=== PATIENT | male | born 1935 | race Caucasian/White ===

== ENCOUNTER → 2016-11-27 | Day surgery (SDC) | payer MEDICARE, BC ==
[~2016-11-27] VITALS: Ht 170.2 cm; Wt 77.7 kg
[~2016-11-27] MED LIST: ASPIR 8181 MG PO; CALCIUM CARBON600 MG PO; DAILY MULTIPLE1 EAC1 PO; FERROUS SULFAT324 MG PO; LEVOTHROID (SY50 MCG PO; LIPITOR20 M1 PO; METAMUCIL CAPSU1 CAP PO; NORCO 5-325 MG1 TAB PO; NORVASC10 MG PO; PRILOSEC20 M1 PO; PRINIVIL (ZESTR20 MG PO; VITAMIN D-32000 UNIT PO; VITAMIN D1000 UNIT PO; ZOCOR10 M1 PO; ZYLOPRIM300 MG PO
== END | disposition disaster alternative care site (69) ==
LOC: GPOC 11-23 14:00 → GEND 07:33 → GPOC 14:00
PROC: 0DB68ZX Excision of Stomach, Via Natural or Artificial Opening Endoscopic, Diagnostic (ICD-10-PCS; principal; 2016-11-27)
DX: K26.4 Chronic or unspecified duodenal ulcer with hemorrhage (principal); D64.9 Anemia, unspecified; I10 Essential (primary) hypertension; K21.9 Gastro-esophageal reflux disease without esophagitis; E78.5 Hyperlipidemia, unspecified; Z85.46 Personal history of malignant neoplasm of prostate; Z79.82 Long term (current) use of aspirin; Z79.899 Other long term (current) drug therapy
CPT/HCPCS: J2001; J7030